=== PATIENT | female | born 1955 | race Caucasian/White ===

== ENCOUNTER 2022-04-02 08:00 | Outpatient (CLI) | payer MEDICARE, OTHER ==
[2022-04-03 09:09] LABS: MEASLES ANTIBODIES IGG <13.5 AU/mL (Immune >16.4); MUMPS ANTIBODIES IGG >300.0 AU/mL (Immune >10.9); VARICELLA-ZOSTER AB IGG 2656 index (Immune >165)
== END 2022-04-02 23:59 | disposition home or self-care (01) ==
LOC: LAB.N 08:00
PROVIDERS: ATTEND Registered Nurse
DX: Z01.84 Encounter for antibody response examination (principal)
CPT/HCPCS: 36415; 81599; 86480; 86735; 86762; 86765; 86787

== ENCOUNTER 2023-09-09 09:00 | Outpatient (CLI) | payer MEDICARE, OTHER ==
[2023-09-09 12:12] LABS: CALCIUM 9.4 mg/dL (8.5-10.3); CREATININE 0.9 mg/dL (0.6-1.3); POTASSIUM 3.9 mmol/L (3.5-4.5)
== END 2023-09-09 09:15 | disposition home or self-care (01) ==
LOC: LAB.N 09:00
PROVIDERS: ATTEND Family Medicine
DX: U07.1 COVID-19 (principal)
CPT/HCPCS: 36415; 80048